=== PATIENT | female | born 1990 | race Caucasian/White ===

== ENCOUNTER 2024-01-17 20:51 | Emergency (ER) | payer MEDICAID, SELFPAY ==
[2024-01-17 20:57] VITALS: BP 141/81; PULSE 86; RESP 16; TEMP 37.7; O2SAT 98
[2024-01-17 21:50] LABS: Abs Immature Grans 0.02 10^3/uL (0.0-0.06); Absolute Basophil Count 0.01 10^3/uL (0.0-0.2); Absolute Eosinophil Count 0.07 10^3/uL (0.0-0.7); Absolute Lymphocyte Count 2.62 10^3/uL (1.2-3.4); Absolute Monocyte Count 0.51 10^3/uL (0.1-0.8); Basophils % 0.1; Eosinophils % 0.8; HCT 41.3 % (36.0-46.0); HGB 14.1 g/dL (11.2-15.7); Immature Grans % 0.2; Lymphocytes % 28.1; MCH 29.9 pg (27.0-33.0); MCHC 34.1 % (32.0-36.0); MCV 88 fL (80-95); MPV 9.8 fL (8.0-11.0); Monocytes % 5.5; Neutrophils % 65.3; Platelet Count 246 10^3/uL (130-400); RBC 4.71 10^6/uL (3.93-5.22); RDW 11.6 % (11.7-14.6); RDW-SD 37.6 fL; WBC 9.33 10^3/uL (4.4-10.8)
[2024-01-17 21:51] VITALS: BP 111/62; PULSE 82; RESP 20; TEMP 37.2; O2SAT 98
--- NOTE | 2024-01-17 22:00 | DI.CT_ITS ---
Exam(s) CT ABDOMEN PELVIS W EXAM: CT ABDOMEN PELVIS W CLINICAL HISTORY: lower abdominal pain TECHNIQUE: Imaging Protocol: Axial computed tomography images with coronal and sagittal reformatted images were created and reviewed. CONTRAST MATERIAL: Intravenous: Omnipaque 350 Contrast volume:100 mL Oral: No COMPARISON: No exams were available for comparison FINDINGS: ABDOMEN: Lung Bases: Normal where visualized. Liver: Normal density. No measurable mass. Portal, Superior Mesenteric, and Splenic Veins: Unremarkable. Gallbladder and Biliary Tract: No radiodense calculus or dilation. Pancreas: Normal density, no abnormal calcifications or inflammatory process. Spleen: Normal. Adrenals: No masses seen. Kidneys: Normal size, contour and axis. No radiodense stones or obstructive uropathy. No masses seen. Abdominal Aorta: Abdominal portion non-dilated. Bowel: No obstruction or bowel wall thickening. No evidence of appendicitis. There is a large amount of stool in the colon. This may reflect constipation. Peritoneal Cavity: There is a small amount of free fluid in the cul-de-sac and adjacent to the left o vary. No free air. Lymph Nodes: Within normal limits. Bones: Within normal limits for the patient's age. Soft Tissues: Unremarkable. PELVIS: Bladder: The urinary bladder is incompletely distended limiting evaluation. Reproductive Organs: There are left ovarian cysts. The largest measures 2.7 cm. There is a 1 cm inv olutional cyst on the left ovary. Lymph Nodes: Within normal limits. Bones: Within normal limits for the patient's age. IMPRESSION: 1. Left ovarian cysts including a 1 cm involutional cyst which may have recently ruptured. There is a small amount of fluid in the cul-de-sac and around the left ovary which is likely physiologic. 2. Constipation. 3. No evidence of appendicitis or obstructive uropathy. RADIATION DOSE DELIVERED: Total DLP DATA REPOSITORY: All CT scans at this facility are submitted to the National Radiology Data Registry (NRDR) Dose Index Registry (DIR) with the [employer] (A[employer]). RADIATION OPTIMIZATION: All CT scans at this facility use at least one of these dose optimization te chniques: automated exposure control; mA and/or kV adjustment per patient size (includes targeted exa ms where dose is matched to clinical indication); or iterative reconstruction.
[2024-01-17 22:04] LABS: ALT 41 U/L (14-59); AST 22 U/L (15-37); Alkaline Phosphatase 44 U/L (46-116); Anion Gap 8.6 mmol/L (3-11); BUN 14 mg/dL (7-18); Bilirubin, Total 0.4 mg/dL (0.2-1.0); CO2 28.4 mmol/L (21.0-32.0); CREATININE 0.8 mg/dL (0.55-1.02); Chloride 105 mmol/L (98-107); Estimated GFR 98.48 (mL/min/1.73m2); Glucose 90 mg/dL (74-106); Sodium 142 mmol/L (136-145); Total Protein 7.8 g/dL (6.4-8.2)
[2024-01-17 22:17] LABS: Bilirubin Negative (Negative); Blood Negative (Negative); Clarity Clear (Clear); Glucose Negative (Negative); Ketones Negative (Negative); Leukocyte Esterase Negative (Negative); Nitrite Negative (Negative); Specific Gravity 1.025 (1.005-1.025); Urobilinogen 0.2 mg/dL (Up to 0.2)
[2024-01-17 22:26] LABS: TSH (W/Ref FT4) 9.88 uIU/mL (0.36-3.74)
[2024-01-17] MEDS: Omnipaque 350 MG/ML 100 ML BTL IJ (22:31)
[2024-01-17] MEDS: Normal Saline - Diluent 50 ML VIAL IJ (22:33)
[2024-01-17 22:43] LABS: FREE T4 0.72 ng/dL (0.76-1.46)
--- NOTE | 2024-01-17 23:10 | W.ED.GENAD ---
Discharge Plan Disposition Patient Disposition: Home Discharge Details Clinical Impression: Bacterial vaginosis, Vulvovaginitis, Constipation Primary Care Provider: StephanieLocal ED Provider: Nevin Omer Home Meds and New Rx's Prescriptions: New fluconazole 150 mg tablet 150 mg PO DAILY Qty: 1 0RF Rx Instructions: take 1 tablet 72 hours after the initial dose clindamycin HCl [Cleocin HCl] 300 mg capsule 300 mg PO TID Qty: 15 0RF clindamycin HCl 300 mg capsule 300 mg PO TID Qty: 15 0RF fluconazole 150 mg tablet 150 mg PO DAILY Qty: 1 0RF Rx Instructions: administer 72 hours after initial dose Discharge Instructions Instructions: Constipation (ED) Additional Instructions: Take the antibiotic as prescribed Take the antifungal as prescribed, take 1 dose of the Diflucan tonight followed by an additional dose of Diflucan in 72 hours Continue on the clindamycin Take a probiotic or yogurt daily while on antibiotics Recommend following up with your primary care physician regarding her thyroid as of slightly elevated Recommend ibuprofen and Tylenol as needed for pain You are constipated, I recommend taking MiraLAX daily and increasing fiber and fluids in your diet when Pelvic rest until you are cleared by your primary care physician Follow-up for outpatient ultrasound, I have ordered this, call in the morning to schedule the appointment Discharge Data Discharge Date/Time-TO BE ENTERED AT DEPARTURE: 01/17/24 23:41 HPI General Date/Time Provider Initiated Documentation: 01/17/24 21:12. HPI Narrative: This 33-year-old female presents with report of abdominal pain for the past several weeks. Was evaluated at [facility] and told that she had PID although she has had a hysterectomy secondary to cervical cancer and completed course of antibiotics. Patient incidentally notes a 20 pound weight gain in the past 3 weeks. She states that the pain persists. She denies any fever or chills. Sexually active monogamous, denies risk of STDs denies any urinary symptoms. Denies any treatment for cervical skin cancer aside from hysterectomy and was told she did not have any active disease. Related Data Home Medications Medication Instructions Recorded Confirmed clindamycin HCl 300 mg capsule 300 mg PO TID #15 caps 01/17/24 clindamycin HCl 300 mg capsule 300 mg PO TID #15 caps 01/17/24 (Cleocin HCl) fluconazole 150 mg tablet 150 mg PO DAILY #1 tab 01/17/24 fluconazole 150 mg tablet 150 mg PO DAILY 1 dose #1 tab 01/17/24 Previous Rx's Medication Instructions Recorded clindamycin HCl 300 mg capsule 300 mg PO TID #15 caps 01/17/24 clindamycin HCl 300 mg capsule 300 mg PO TID #15 caps 01/17/24 (Cleocin HCl) fluconazole 150 mg tablet 150 mg PO DAILY #1 tab 01/17/24 fluconazole 150 mg tablet 150 mg PO DAILY 1 dose #1 tab 01/17/24 Allergies Allergy/AdvReac Type Severity Reaction Status Date / Time No Known Allergies Allergy Unverified 01/17/24 21:02 General 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: 3 Course Vital Signs Vital signs: Vital Signs Temperature 37.7 C H 01/17/24 20:57 Pulse 86 01/17/24 20:57 Respiratory Rate 16 01/17/24 20:57 Blood Pressure 141/81 H 01/17/24 20:57 Pulse Oximetry 98 01/17/24 20:57 Temperature 37.2 C 01/17/24 21:51 Temperature Source Oral 01/17/24 21:51 Pulse 82 01/17/24 21:51 Respiratory Rate 20 01/17/24 21:51 Respiratory Effort Normal 01/17/24 21:05 Blood Pressure 111/2 L 01/17/24 21:51 Pulse Oximetry 98 01/17/24 21:51 Oxygen Delivery Method Room Air 01/17/24 21:51 Oxygen Flow Rate 0 01/17/24 21:51 End Tidal Co2 6 01/17/24 20:57 Pain Level 6 01/17/24 21:51 Lab/Test Results Lab/Test Results: 01/17/24 22:00 Vaginal Vaginitis Screen - Final Laboratory Tests Range/Units 01/17/24 01/17/24 20:12 21:44 WBC (4.4-10.8) 10^3/uL 9.33 RBC (3.93-5.22) 10^6/uL 4.71 Hgb (11.2-15.7) g/dL 14.1 Hct (36.0-46.0) % 41.3 MCV (80-95) fL 88 MCH (27.0-33.0) pg 29.9 MCHC (32.0-36.0) % 34.1 RDW (11.7-14.6) % 11.6 L Plt Count (130-400) 10^3/uL 246 MPV (8.0-11.0) fL 9.8 Immature Gran % 0.2 Neutrophils % 65.3 Lymphocytes % 28.1 Monocytes % 5.5 Eosinophils % 0.8 Basophils % 0.1 Nucleated RBC % (0.0-0.3) % 0.0 Absolute Neutrophils (1.2-6.7) 10^3/uL 6.10 Absolute Lymphocytes (1.2-3.4) 10^3/uL 2.62 Absolute Monocytes (0.1-0.8) 10^3/uL 0.51 Absolute Eosinophils (0.0-0.7) 10^3/uL 0.07 Absolute Basophils (0.0-0.2) 10^3/uL 0.01 Sodium (136-145) mmol/L 142 Potassium (3.5-5.1) mmol/L 4.0 Chloride (98-107) mmol/L 105 Carbon Dioxide (21.0-32.0) mmol/L 28.4 Anion Gap (3-11) mmol/L 8.6 BUN (7-18) mg/dL 14 Creatinine (0.55-1.02) mg/dL 0.8 Est GFR (CKD-EPI 2020) (mL/min/1.73m2) 98.48 Glucose (74-106) mg/dL 90 Calcium (8.5-10.1) mg/dL 9.0 Total Bilirubin (0.2-1.0) mg/dL 0.4 AST (15-37) U/L 22 ALT (14-59) U/L 41 Alkaline Phosphatase (46-116) U/L 44 L Total Protein (6.4-8.2) g/dL 7.8 Albumin (3.4-5.0) g/dL 4.0 TSH (0.36-3.74) uIU/mL 9.88 H Free T4 (0.76-1.46) ng/dL 0.72 L Urine Color (Yellow) Yellow Urine Clarity (Clear) Clear Urine pH (5-8) 6.0 Ur Specific [place] (1.005-1.025) 1.025 Urine Protein (Neg-Trace) mg/dL Negative Urine Ketones (Negative) mg/dL Negative Urine Blood (Negative) Negative Urine Nitrite (Negative) Negative Urine Bilirubin (Negative) Negative Urine Urobilinogen (Up to 0.2) mg/dL 0.2 Ur Leukocyte Esterase (Negative) Negative Urine Glucose (Negative) mg/dL Negative Medical Decision Making Is a 33-year-old female presenting with report of persistent abdominal pain despite being treated for PID despite hysterectomy Patient is alert and oriented, no acute distress, no leukocytosis Vaginal exam performed with evidence of vulvovaginitis, thick white discharge Mild elevation in thyroid, 9.88 with a free T4 of 0.72, will refer back to primary care physician Evidence of constipation on CT Will take Colace and MiraLAX Urinalysis does not show evidence of acute abnormality Abdominal exam with suprapubic tenderness, no rebound or guarding, no CVA tenderness, on pelvic exam, patient has evidence of vulvovaginitis, positive yeast and Gardnerella, will treat with clindamycin and Diflucan Patient will be encouraged to take a probiotic CT abdomen and pelvis was ordered for further evaluation Pelvic ultrasound will be ordered for evaluation of ovaries, patient did have a hysterectomy secondary to cervical cancer Return precautions reviewed and patient expressed understanding Quality:SDOH Health Related Social Needs: No Data to Display PFSH All Active Problems (Updated 01/17/24 @ 23:21 by JAXON Medina) Constipation (Acute) Vulvovaginitis (Acute) Bacterial vaginosis (Acute) Social History Smoking/Tobacco Use Status: Never Smoking risk assessment performed?: Yes Alcohol Intake: current Alcohol Intake frequency: holidays/special occasions only Drug use: Never Substance use type: does not use Do you feel safe at home: Yes Do you feel safe in your relationship?: Yes PAWSS Have you Been Recently Intoxicated or Drunk Within the Last 30 days?: No Have you Ever Experienced Previous Episodes of Alcohol Withdrawal?: No Have you ever Experienced Withdrawal Seizures?: No Have you ever Experienced Delirium Tremens(DT)s?: No Have you ever undergone Alcohol Rehabilitation Treatment (i.e, inpt ot outpatient treatment programs)?: No Have you ever Experienced Blackouts?: No Have you ever Combined Alcohol with other Downers within the last 90 days?: No Have you ever Combined Alcohol with any other Substance of Abuse during the last 90 days?: No Positive Blood Alcohol level on Presentation? [PCS.BAL]: No Evidence of Increased Autonomic Activity (i.e. HR>120, tremor, sweating, agitation, nausea)?: No Result: 0
--- NOTE | 2024-01-17 23:22 | DI.VRAD_ITS ---
PROCEDURE INFORMATION: Exam: CT Abdomen And Pelvis With Contrast Exam date and time: 01/17/2024 10:25 PM Age: 33 years old Clinical indication: Abdominal pain; Localized; Lower; Prior surgery; Surgery date: 6+ months; Surgery type: Partial hysterectomy 2011 TECHNIQUE: Imaging protocol: Computed tomography of the abdomen and pelvis with contrast. Contrast material: OMNIPAQUE 350; Contrast volume: 100 ml; Contrast route: INTRAVENOUS (IV); COMPARISON: No relevant prior studies available. FINDINGS: Lungs: Lung bases are clear. Liver: Normal. No mass. Gallbladder and bile ducts: Normal. No calcified stones. No ductal dilation. Pancreas: Normal. No ductal dilation. Spleen: Normal. No splenomegaly. Adrenal glands: Normal. No mass. Kidneys and ureters: Kidneys enhance symmetrically. No stones or hydronephrosis. Stomach and bowel: Stomach is unremarkable. Normal caliber small bowel. Heavy stool load. Appendix: Normal caliber appendix. Intraperitoneal space: Mild simple free fluid in the pelvis. No free air. Vasculature: Unremarkable. No abdominal aortic aneurysm. Lymph nodes: Unremarkable. No enlarged lymph nodes. Urinary bladder: Bladder is decompressed. Reproductive: There are a few left ovarian cysts, largest measuring 2.3 cm. An 8 mm left ovarian involuting follicle is also seen. Hysterectomy. Right adnexal region is unremarkable. Bones/joints: Unremarkable. No acute fracture. Soft tissues: Unremarkable. IMPRESSION: Mild free fluid in the pelvis and multiple left adnexal cyst measuring up to 2.3 cm. One of the follicular cysts appears to be recently ruptured. Heavy stool load. Correlate clinically for possible constipation. Dictated and Authenticated by: Merry Aceves MD. Ordering:ANN MARIE Rooney MD
[2024-01-17] MEDS: Fluconazole 150 MG TAB PO (23:27)
[2024-01-17] MEDS: Clindamycin 150 MG CAP, 12 CAPS/BTL 300 MG PO (23:30)
[2024-01-17 23:40] VITALS: BP 98/74; PULSE 80; RESP 16; TEMP 36.9; O2SAT 98
--- NOTE | 2024-01-18 00:58 | NUR.NOTE ---
Pelvic Ultrasound requisition faxed to [facility], patient advised to call [facility] scheduling any time after 7am 01/18/24. Patient will f/u with pcp.Nursing Note:
[2024-01-19 13:40] LABS: Chlamydia Result Negative (Negative); GC Result Negative (Negative)
== END 2024-01-17 23:41 | disposition home or self-care (01) ==
PROVIDERS: Emergency Provider Physician Assistant
DX: N83.202 Unspecified ovarian cyst, left side (principal); R10.2 Pelvic and perineal pain
CPT/HCPCS: 80053; 87491; 87591; 99285; 74177; 81003; 84439; 84443; 85025; 87480; 87510; 87660; 99284; J3490

== ENCOUNTER → 2024-01-19 11:27 | Outpatient (CLI) | payer MEDICAID, SELFPAY ==
--- NOTE | 2024-01-19 | DI.US_ITS ---
Exam(s) US PELVIS TRANSVAGINAL EXAM: US PELVIS TRANSVAGINAL CLINICAL HISTORY: HYSTERECTOMY, EVALUATE OVARIES TECHNIQUE: Transabdominal and transvaginal imaging was performed using standard protocol. COMPARISON: CT CT ABDOMEN PELVIS W from 01/17/2024 FINDINGS: UTERUS: Status post hysterectomy. Endometrium: mm Myometrium: Unremarkable. Cervix: Unremarkable. OVARIES: Right: Not visualized. Left: Cyst or mass: 2.3 centimeter hemorrhagic cyst. 2.1 centimeter simple cyst/follicle. DOPPLER: Color: Symmetric and uniform flow to both ovaries. No hyperemia. CUL-DE-SAC: Free fluid: Small amount IMPRESSION: 1. Status post hysterectomy. Nonvisualization of the right ovary. 2. 2.3 and 2.1 centimeter cyst of the right ovary. One hemorrhagic. No evidence of torsion. Small amount of free fluid. DATA REPOSITORY:
== END ==
PROVIDERS: Visit Provider Physician Assistant
DX: N83.292 Other ovarian cyst, left side (principal); Z90.710 Acquired absence of both cervix and uterus
CPT/HCPCS: 76830; 76856